=== PATIENT | male | born 1985 | race Caucasian/White ===

== ENCOUNTER 2016-05-09 11:18 | Inpatient (IN) ==
--- NOTE | 2016-05-09 12:31 | Emergency Department Note ---
Disposition Clinical Impression: Septic joint of right knee joint Qualifiers: Septic arthritis organism: due to unspecified organism Qualified Code(s): M00.9 - Pyogenic arthritis, unspecified Disposition: Admitted As Inpatient Referrals: NO,PCP [Non-Partnered Physician] - Forms: ED Satisfaction Letter Recheck wound or abnormal lab - General Chief Complaint: ED Recheck/Abnormal Lab/Rx Stated Complaint: septic joint Time Seen by Provider: 05/09/16 11:30 Source: patient, family Limitations: no limitations Nursing Notes Reviewed: Yes Vital Signs Reviewed: Yes - History of Present Illness HPI Narrative: Patient presents with complaint of right knee swelling. Patient has been ongoing for several months. Patient was seen here on the second after injuring his knee again. Patient state is instructed to follow-up with orthopedist and he states that when he followed up they drained his knee. Patient reveals that he received a card to call the hospital where he had the procedure done. Advised symptoms to report to [facility] or how state as they believe he had a septic joint. Patient states she has had some subjective fevers and chills denies nausea or vomiting. Patient states that after draining his knee became less swollen but he notes that his calf became more swollen. - Related Data Home Medications Medication Instructions Recorded Confirmed Alprazolam [Xanax 1 MG Tablet] 1 mg PO BID 02/07/16 02/08/16 Famotidine [Pepcid] 40 mg PO DAILY 02/07/16 02/08/16 Gabapentin [Neurontin] 800 mg PO TID 02/07/16 02/08/16 Ibuprofen [Motrin] 800 mg PO BID 02/07/16 02/08/16 Previous Rx's Medication Instructions Recorded Hydrocodone/Acetaminophen [[place] 1 tab PO Q6H PRN #20 tab 02/10/16 5-325 Tablet] Sulfamethoxazole/Trimeth DS 1 each PO BID 10 Days 02/10/16 [Bactrim DS] HYDROcodone/Acet 5/325 mg [[place] 1 tab PO Q6H PRN #8 tab 03/28/16 5-325 mg] Ibuprofen [Motrin] 600 mg PO Q6HR PRN #40 tab MDD 3200 03/28/16 HYDROcodone/Acet 5/325 mg [[place] 1 tab PO Q6H PRN #15 tab 05/02/16 5-325 mg] Naproxen [Naprosyn] 500 mg PO BID PRN #20 tablet 05/02/16 Allergies Allergy/AdvReac Type Severity Reaction Status Date / Time No Known Allergies Allergy Verified 05/09/16 11:25 All systems ED: reviewed and negative except as stated. Past Medical History - Past Medical History Source: patient Medical history: Reports: no medical history Psychiatric history: Reports: anxiety - Social History Smoking Status: Current every day smoker Smokeless Tobacco Status: Yes Alcohol use: Reports: none Drug use: Reports: none Physical Exam - General Limitations: no limitations General appearance: alert, in no apparent distress - Head Head exam: atraumatic, normocephalic, normal inspection - Eye Eye exam: Present: normal appearance, PERRL, EOMI - ENT ENT exam: normal exam, normal oropharynx, mucous membranes moist - Neck Neck exam: Present: normal inspection, full ROM, trachea midline - Chest Chest inspection: Present: normal inspection, symmetric chest wall rise - Respiratory Respiratory exam: Present: normal lung sounds bilaterally - Cardiovascular Cardiovascular exam: Present: regular rate, normal rhythm, normal heart sounds - Abdominal Exam Abdominal exam: Present: soft, Non-Tender. Absent: tenderness, distention, guarding, rebound, rigidity - Extremities Exam Extremities exam: Present: normal inspection, full ROM, tenderness (Right knee tenderness to palpation, decreased range of motion secondary to pain.), pedal edema - Back Exam Back exam: Present: normal inspection, full ROM. Absent: tenderness - Neurological Exam Neurological exam: Present: alert, oriented X3 - Psychiatric Psychiatric exam: Present: normal affect, normal mood - Skin Skin exam: Present: warm, dry, intact, normal color Course Vital Signs Temperature 97.5 F L 05/09/16 11:25 Pulse Rate 95 05/09/16 11:25 Respiratory Rate 16 05/09/16 11:25 Blood Pressure 139/79 05/09/16 11:25 O2 Sat by Pulse Oximetry 99 05/09/16 11:25 Temperature 97.5 F L 05/09/16 11:25 Pulse Rate 95 05/09/16 11:25 Respiratory Rate 16 05/09/16 11:25 Blood Pressure 139/79 05/09/16 11:25 O2 Sat by Pulse Oximetry 99 05/09/16 11:25 Oxygen Delivery Oxygen Delivery Room Air Recheck wound or abnormal lab - MDM Narrative Medical decision making narrative: Discussed this patient with Dr. Carter. Patient states this lasts food intake was last night. He does note prior to coming in today he had some chocolate milk which is at least 2 hours ago. - Lab Data Lab results reviewed: Yes I reviewed the patient's lab results. Lab results narrative: Labs are pending. Body fluid analysis performed on 05/04/2016 revealed a white cell count of 87,000 and red cell count of 100,000 in the synovial fluid of the right knee Critical Care Time Total Critical Care Time: 30 Attestation: Critical care performed: Time is exclusive of separately billable procedures. Time includes: direct patient care, patient reassessment, coordination of patient care, interpretation of data (laboratory data, radiology data, and respiratory data), review of patient's medical records, medical consultation and documentation of patient care. Procedures included in critical care time: Procedures excluded from critical care time:
[2016-05-09] MEDS ORDERED: Ondansetron 4 MG/2 ML VIAL IVP ONE (12:46)
[2016-05-09] MEDS ORDERED: *HR* Morphine 2 MG/ML SYRINGE IV ONE (12:46)
[2016-05-09] MEDS ORDERED: Vancomycin 1,750 MG in D5% in Water 500 ML IVPB ONE (13:09)
[2016-05-09 13:30] LABS: Basophils % 0.3 %; Eosinophils # 0.2 K/mcL (0.0-0.6); Eosinophils % 1.7 %; Hematocrit 37.4 % (37.5-50.1); Hemoglobin 12.6 g/dL (12.9-16.9); Immature Granulocytes % 0.7 % (0-4); Lymphocytes # 2.5 K/mcL (0.6-4.6); Lymphocytes % 21.9 %; Mean Corpuscular HGB Conc 33.7 g/dL (31.6-35.5); Mean Corpuscular Hemoglobin 29.2 pg (28.0-33.3); Mean Corpuscular Volume 86.8 fL (83.0-100.0); Mean Platelet Volume 8.8 fL (9.4-12.4); Monocytes # 0.5 K/mcL (0.0-1.3); Monocytes % 4.2 %; Neutrophils # 8.2 K/mcL (1.6-8.9); Platelet Count 399 K/mcL (140-400); Red Blood Count 4.31 M/mcL (4.19-5.50); Red Cell Distribution Width 12.1 % (11.5-14.5); Segmented Neutrophils % 71.2 %
[2016-05-09 13:43] LABS: Alanine Aminotransferase 64 Units/L (0-55); Albumin 3.1 g/dL (3.5-5.0); Albumin/Globulin Ratio 0.6 (1.1-2.2); Alkaline Phosphatase 97 Units/L (38-126); Aspartate Amino Transferase 35 Units/L (5-34); BUN/Creatinine Ratio 21 (6-26); Bilirubin,Total 0.3 mg/dL (0.2-1.2); Blood Urea Nitrogen 17 mg/dL (8-26); Calcium 10.2 mg/dL (8.6-10.8); Carbon Dioxide 24 mEq/L (19-29); Chloride 103 mEq/L (98-109); Globulin 5.4 g/dL (2.4-3.5); Glucose 89 mg/dL (70-99); Osmolality,Calculated 287 (280-300); Potassium 4.3 mEq/L (3.5-4.5); Sodium 138 mEq/L (136-145); Total Protein 8.5 g/dL (6.0-8.3); eGFR For African Americans > 60 (> 60); eGFR For Non-African Americans > 60 (> 60)
[2016-05-09] MEDS ORDERED: *HR* HYDROmorphone (PF) 1 MG/ML SYRINGE IVP ONE (14:06)
--- NOTE | 2016-05-09 15:46 | Orthopedic History & Physical ---
Date of Encounter: 05/09/16 Time of Encounter: 14:00 Assessment and Plan (1) Septic joint of right knee joint Current visit: Yes Status: Acute Medical records reviewed. Right Knee Aspiration performed under sterile conditions with 18g needle, 60cc Syringe through anterolateral approach. Approximately 20cc of turbid, yellow serusanginous fluid aspirated. No obvious purulence, but suspicious for infection. Fluid sent for STAT gram stain, cell count, and cultures prior to receiving antibiotics. Gram stain negative, elevated cell count Plan is for Right Knee Arthroscopic Washout today with . Consent was discussed and patient signed. Risks versus benefits reviewed. NPO. Non-ambulatory. Started IV Vancomycin. Qualifiers: Septic arthritis organism: due to unspecified organism Qualified Code(s): M00.9 - Pyogenic arthritis, unspecified History of Present Illness Chief complaint: Right Knee Pain x 2 months HPI: Mr. Cruz is a 30 year old male, presents to the ED for Right knee pain since March. He states he was at work, climbing a tree, and he slipped approximately 5-7 feet down the tree until his shoe cleats caught the tree. He was seen and evaluated in [facility] 03/28/16 for this, XRAY showed no evidence of fracture and he was discharged with instructions to follow up with Orthopedics. He did not do this. He has had Right knee pain ever since this incident with reported swelling, difficulty with ambulation and pain that radiates down into his lower leg. He has been to 2 different ERs over this 2 month course - Most recently he was seen at [facility] 05/02/16 and again diagnosed with Knee Sprain and discharged with instruction to f/up with Ortho. Then again, he was seen at [facility] 05/04/16. He has tried ICE, elevation, HEAT and rest. However, the pain has drastically increased x 1 week approximately. He is now unable to work secondary to pain. When he was seen at [facility] ED 05/04/15, a knee aspiration was performed. According to medical records, cultures revealed Staph Aureus from Right knee joint, elevated cell count with shift. At that time, MRI was ordered, but no antibiotics administered. Patient was called and informed of culture results today and he is now here. He has no prior history, or trauma to Right knee. He previously had an infection to his Right forearm that required 5-9 days of hospitalization for IV antibiotics in January to [facility] [facility]. This has since resolved without surgical intervention. He was discharged on PO BActrim. He has a history of anxiety, peptic ulcer disease, and neuropathy, and Suboxone use. He denies illicit drug use, alcohol use. He admits to 1PPD smoker. He denies CP, admits to intermittent chills and fever at home. Past Med Surg Social Fam HX - Past Medical History Medical history: no medical history Psychiatric history: anxiety - Social History Smoking Status: Current every day smoker Smokeless Tobacco Status: Yes Alcohol use: none Drug use: none - Family History Grandmother Age at : 69 Cause of : Lung Cancer Hx Family Cardiac Disorders: Yes Hx Family Respiratory Disorders: No (COPD) Hx Family Cancer: Yes (LUng and Breast Cancer) Hx Family GI Disorders: Yes (GERD) Hx Family Genitourinary Disorders: No Hx Family Endocrine Disorder: Yes (Diabetes) Hx Family Musculoskeletal Disorders: No Hx Family Neuromuscular Disorders: No Hx Family Neurologic Disorders: No Hx Family HEENT Disorders: No Hx Family Autoimmune Disorders: No Hx Family Reproductive Disorders: No Hx Family Psychosocial Disorders: No Hx Family Medical Disorders: No Medications and Allergies Gabapentin [Neurontin] 800 mg PO TID 02/07/16 [History] Ibuprofen [Motrin] 800 mg PO BID 02/07/16 [History] OxyCODONE/APAP 5/325 [Percocet 5/325 MG] 1 tab PO Q6H PRN 05/09/16 [History] Oxycodone HCl/Acetaminophen [Percocet 5-325 mg Tablet] 1 each PO Q4-6H PRN #40 tablet 05/10/16 [Rx] Sulfamethoxazole/Trimeth DS [Bactrim DS] 2 each PO BID #60 tablet 05/10/16 [Rx] Allergies No Known Allergies Allergy (Verified 05/09/16 13:25) All Systems Reviewed: A 10-system review of systems was performed and is negative for pertinent findings except as documented above in the HPI. - Constitutional Constitutional: as per HPI, fever(s), frequent falls - Cardiovascular Cardiovascular: as per HPI, no chest pain, no claudication, no edema, no syncope - Respiratory Respiratory: as per HPI, no cough, no dyspnea - Musculoskeletal Musculoskeletal: as per HPI, abnormal gait, joint swelling, limited range of motion, radiating pain into limb, no numbness, no tingling Physical Exam - Constitutional Vitals: Temp Pulse Resp BP Pulse Ox 97.5 F L 95 18 131/72 99 05/09/16 11:25 05/09/16 11:25 05/09/16 14:31 05/09/16 14:31 05/09/16 11:25 General appearance IM: A&O X 3, no acute distress - Knee right Appearance: effusion Effusion grade: grade 1 Varus alignment in stance: No Valgus alignment in stance: No Tenderness with palpation knee: anterior, posterior, medial, lateral Pain: with flexion, with extension, throughout ROM Gait: limping ROM: extension knee: Full ROM: flexion knee: Limited Crepitus with motion: No Results - Labs Result Diagrams: 05/10/16 13:41 05/10/16 13:41 Labs: Abnormal lab results WBC 11.5 K/mcL (4.3-11.1) H 05/09/16 13:25 Hgb 12.6 g/dL (12.9-16.9) L 05/09/16 13:25 Hct 37.4 % (37.5-50.1) L 05/09/16 13:25 MPV 8.8 fL (9.4-12.4) L 05/09/16 13:25 AST 35 Units/L (5-34) H 05/09/16 13:25 ALT 64 Units/L (0-55) H 05/09/16 13:25 Serum Total Protein 8.5 g/dL (6.0-8.3) H 05/09/16 13:25 Albumin 3.1 g/dL (3.5-5.0) L 05/09/16 13:25 Globulin 5.4 g/dL (2.4-3.5) H 05/09/16 13:25 Albumin/Globulin Ratio 0.6 (1.1-2.2) L 05/09/16 13:25 All other labs normal.
[2016-05-09] MEDS ORDERED: *HR* Morphine 2 MG/ML SYRINGE IVP PRN (16:18)
[2016-05-09 16:27] LABS: Source,Synovial Fluid RIGHT KNEE
[2016-05-09] MEDS ORDERED: D5% in 0.45% NACL 1,000 ML IVC SCH (16:30)
--- NOTE | 2016-05-09 17:12 | Anesthesia Evaluation PreOp ---
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: Other (chronic right hip pain) Other Medical History: GERD Anesthesia History: No Prior Anesthetic Complications, Past Anesthesia Alcohol Use: none Drug use: none Medications and Allergies Gabapentin [Neurontin] 800 mg PO TID 02/07/16 [History] Ibuprofen [Motrin] 800 mg PO BID 02/07/16 [History] OxyCODONE/APAP 5/325 [Percocet 5/325 MG] 1 tab PO Q6H PRN 05/09/16 [History] Allergies No Known Allergies Allergy (Verified 05/09/16 13:25) - Meds/Allergy Pre-op Review Medications Reviewed: Yes Allergies Reviewed: Yes Beta Blockers on Current Med List: No Anesthesia Results - Labs 05/09/16 13:25 05/09/16 13:25 Anesthesia Exam Vital Signs/O2 Sat, Most Current Temp Pulse Resp BP Pulse Ox 98.6 F 81 16 114/64 100 05/09/16 15:46 05/09/16 15:46 05/09/16 15:46 05/09/16 15:46 05/09/16 15:46 Height: 6'/1.83 m Weight: 270 lbs/122.47 kg NPO (# of Hours): 8 Pain Scale: 0 Pain Scale Used: Numeric (1 - 10) - HEENT Pupil (Motor): EOMI Mallampati: III Teeth: Normal (broken right upper tooth) Oral Opening: Greater than 3 - MANAGER [employer] LOC: Oriented MANAGER [employer] Motor: Normal RUE, Normal LUE, Normal RLE, Normal LLE, Normal Face [employer]NAGER [employer] Sensory: Normal: RUE, LUE, RLE, LLE, Face - Cardiac Rhythm: Regular Murmur: None - Pulmonary Breath Sounds: bilateral Clear Respiratory Effort: Symmetrical Anesthesia Assess/Plan ASA Score: 2 Modified [place] Scale for Level of Consciousness: Cooperative, oriented, and tranquil Anesthetic Plan: General Monitoring Plan: Standard Monitors Recovery Plan: PACU
[2016-05-09] MEDS ORDERED: Dexamethasone 4 MG/ML VIAL ONE (17:31)
[2016-05-09] MEDS ORDERED: *HR* FentaNYL (PF) 100 MCG/2 ML VIAL ONE ×2 (17:31→18:19)
[2016-05-09] MEDS ORDERED: Ondansetron 4 MG/2 ML VIAL ONE (17:31)
[2016-05-09] MEDS ORDERED: Lidocaine -MPF 2% 2 ML VIAL ONE (17:32)
[2016-05-09] MEDS ORDERED: *HR* Midazolam HCl 2 MG/2 ML VIAL ONE (17:32)
[2016-05-09] MEDS ORDERED: *HR* Propofol 200 MG/20 ML VIAL IVP ONE ×2 (17:32→18:03)
[2016-05-09] MEDS ORDERED: Lidocaine -MPF 4% 5 ML AMPUL ONE (17:36)
[2016-05-09] MEDS ORDERED: *HR* Succinylcholine 200 MG/10 ML VIAL IVP ONE (17:36)
[2016-05-09] MEDS ORDERED: *HR* HYDROmorphone 2 MG/ML SYRINGE ONE (18:09)
[2016-05-09] MEDS ORDERED: *HR* Promethazine 25 MG/ML VIAL IVP PRN (18:20)
[2016-05-09 18:40] LABS: Appearance,Synovial Fluid Cloudy (Clear-Hazy); Color,Synovial Fluid Straw (Straw)
--- NOTE | 2016-05-09 18:48 | Operative Note ---
Date of procedure: 05/09/16 Pre-op diagnosis: Right septic knee joint Post-op diagnosis: same Procedure: Right knee arthroscopic lavage and synovectomy Anesthesia: ZAYRA Surgeon: Delfino Carter Digester: Vinicius Lindsay Estimated blood loss (cc): 2 Specimen: cultures Condition: stable Disposition: PACU Procedure in Detail: The patient was brought in the OR and positioned on the OR table in supine position. A sign in was performed. The patient underwent general anesthesia. A tourniquet was placed on the right thigh proximally, which was positioned in the Mauri legholder. The right lower extremity was then prepped and draped in usual sterile fashion. A timeout was performed. A 5 mm stab incision was made with an 11 blade, and the superior anterior drill portal. A drainage trocar was established. A few cc of blood-tinged.turbid fluid gushed out. This fluid was cultured for aerobic and anaerobic. The direct anterior lateral portal was made at the lateral aspect of the patella tendon at the joint line level, the trocar was established followed by the scope. Normal saline was run through the joint, along outflow through the superior lateral portal. The patient had significant degenerative changes, mainly in the medial compartment with partial detachment of a meniscus. The ACL appeared torn. The lateral compartment was in better condition. A spinal needle was used to establish the medial portal, a 3.8 mm shaver was introduced. This used to help debulk a synovitis and was removed from onto very crystalline deposits. We allowed 6 L of normal saline to run through the knee. The 2 inferior portals were closed with a 2-0 nylon suture. The other superior portal was left partially open to drain. The patient was injected with 15 mL of 0.5 Marcaine into the knee for postoperative pain control. Sterile dressings applied. The patient was extubated taken to recovery room in stable condition.
[2016-05-09] MEDS: *HR* HYDROmorphone (PF) 1 MG/ML SYRINGE IVP PRN ×8 (19:04→19:50)
--- NOTE | 2016-05-09 19:58 | Anesthesia Evaluation Post Op ---
Date of Encounter: 05/09/16 Time of Encounter: 19:58 - Vital Signs Vital Signs: Vital Signs/O2 Sat, Most Current Temp Pulse Resp BP Pulse Ox 98.1 F 91 18 140/93 96 05/09/16 19:47 05/09/16 19:47 05/09/16 19:47 05/09/16 19:47 05/09/16 19:47 - Lungs Lungs: Clear Ascult./Percussion - Airway Airway: Non-obstructed - Cardiovascular Regular Rate - Mental Status Mental Status: Alert & Oriented, Answers Appropriately - Pain Pain Scale: 5 Pain Scale used: Numeric (1 - 10) - Nausea Vomiting Nausea Vomiting: Not Present - Hydration Hydration: Ice chips, Has not voided - Discharge PostOp Status: Transfer Patient to floor
[2016-05-09] MEDS ORDERED: Acetaminophen 325 MG TABLET PO PRN (20:13)
[2016-05-09] MEDS: *HR* OxyCODONE/APAP 5/325 TABLET PO PRN (21:23)
[2016-05-10] MEDS: Vancomycin 1,750 MG in D5% in Water 500 ML IVPB SCH ×2 (00:16→08:38)
[2016-05-10] MEDS: *HR* Morphine 2 MG/ML SYRINGE IVP PRN ×5 (00:16→22:55)
[2016-05-10] MEDS: *HR* OxyCODONE/APAP 5/325 TABLET PO PRN ×4 (03:59→21:23)
[2016-05-10] MEDS: *HR* Enoxaparin 40 MG/0.4 ML SYRINGE SQ SCH (06:18)
--- NOTE | 2016-05-10 08:35 | Discharge Summary ---
Date of Encounter: 05/11/16 Time of Encounter: 08:33 - Discharge Diagnosis (1) Septic joint of right knee joint Priority: Primary Status: Acute Qualifiers: Septic arthritis organism: due to unspecified organism Qualified Code(s): M00.9 - Pyogenic arthritis, unspecified - Discharge Medications Home Medications: Gabapentin [Neurontin] 800 mg PO TID 02/07/16 [History] Ibuprofen [Motrin] 800 mg PO BID 02/07/16 [History] OxyCODONE/APAP 5/325 [Percocet 5/325 MG] 1 tab PO Q6H PRN 05/09/16 [History] Oxycodone HCl/Acetaminophen [Percocet 5-325 mg Tablet] 1 each PO Q4-6H PRN #40 tablet 05/10/16 [Rx] Sulfamethoxazole/Trimeth DS [Bactrim DS] 2 each PO BID #60 tablet 05/10/16 [Rx] Allergies/Adverse Reactions: Allergies No Known Allergies Allergy (Verified 05/09/16 13:25) Labs on day of discharge: Labs from last 24 hours 05/09/16 14:55 Synovial Source RIGHT KNEE Synovial Color Straw Synovial Appearance Cloudy Synovial Volume Test Not Performed Synovial RBC < 0.002 Synovial Tot Nuc Cell 12818 H Synovial Band Neuts Test Not Performed Synovial Basophils Test Not Performed Synovial Eosinophils Test Not Performed Synovial Seg Neuts % 96.0 Synovial Lymphocytes % 4.0 Synovial Monocytes % Test Not Performed Synovial Other Cells % Test Not Performed Preliminary micro results at discharge 05/09/16 18:15 Wound Culture - Preliminary Right Knee No growth. 05/09/16 14:45 Body Fluid Culture - Preliminary Other-Specify in Comments Date of admission: 05/09/16 13:43 Primary care physician: Heather Sheriff BARRATTE OPERATOR Discharging clinician: Delfino Carter Anticipated date of discharge: 05/10/16 - Patient Status Disposition: Home, Self-Care Condition: Good Functional capacity at discharge: independent ambulation Overall status at discharge: patient is progressing back to baseline - Discharge Instructions Follow Up With: Jia Romero PAC [Physician Digital Experience Manager] - 05/19/16 3:00 pm Forms: Inpatient Work/School Release - Diet and Activity Diet: regular diet - Hospital Course Hospital course: Mr. Cruz is a 30 year old male Who underwent arthroscopic lavage of right knee last night - Time Spent with Patient Total time spent providing and/or coordinating discharge services:
--- NOTE | 2016-05-10 12:26 | Orthopedics Progress Note ---
Date of Encounter: 05/10/16 Time of Encounter: 11:45 - Assessment and Plan (1) Septic joint of right knee joint Current Visit: Yes Status: Acute May change dressings tomorrow and apply dry gauze to incisions and continue to use ZO wrap for swelling and stability. Finish dose of IV abx. Will go home with PO abx rx. Will have pain med script upon discharge. Preliminary cx results show no growth. Pending new labs for today. Will DC today if WBC trending down. continue HEP reviewed with patient by therapy. WBAT. Will f/up in [facility] office in 1 week. Qualifiers: Septic arthritis organism: due to unspecified organism Qualified Code(s): M00.9 - Pyogenic arthritis, unspecified Subjective Principal diagnosis: POD#1 S/P - Interval history: Patient doing well this morning but still having moderate pain in the knee. No events overnight. Denies numbness or tingling in leg. States therapy has been in to work with him today and gave him exercises to do at home. Objective Vital signs: Vital Signs Temp Pulse Resp BP Pulse Ox 05/10/16 11:00 97.9 F 84 16 129/79 97 05/10/16 07:00 98.2 F 85 16 122/68 99 05/10/16 04:21 98.4 F 87 16 109/70 99 05/09/16 23:15 98.6 F 86 16 129/78 97 05/09/16 22:15 97.8 F 85 16 133/80 96 05/09/16 21:14 97.7 F 90 16 135/81 96 05/09/16 20:45 98.6 F 90 16 130/82 96 05/09/16 20:15 98.5 F 96 16 137/86 95 05/09/16 20:05 98.0 F 74 18 145/90 96 05/09/16 19:57 69 16 147/92 93 L 05/09/16 19:47 98.1 F 91 18 140/93 96 05/09/16 19:37 96 16 155/91 95 05/09/16 19:27 98 18 155/102 94 L 05/09/16 19:17 98.3 F 920 18 152/90 93 L 05/09/16 19:07 111 20 165/112 96 05/09/16 18:57 94 20 155/106 100 01/09/17 18:47 98.4 F 105 16 163/84 99 05/09/16 15:46 98.6 F 81 16 114/64 100 05/09/16 14:31 18 131/72 Intake and Output 05/09/16 05/10/16 05/10/16 23:59 07:59 15:59 Intake Total 500 / 500 500 / 500 480 / 480 Output Total 176 / 176 1850 / 1850 0 / 0 Balance 324 / 324 -1350 / -1350 480 / 480 Intake: IV Fluids 500 / 500 500 / 500 Vancocin 1,750 MG In 500 / 500 500 / 500 Dextrose 5% 500 ML @ 334. 014 mls/hr IVPB Q8H [facility] Rx#:[id number] Oral 0 / 0 480 / 480 Output: Urine 175 / 175 1850 / 1850 0 / 0 Estimated Blood Loss Other: Meal Dinner Breakfast Percent of Meal Consumed 100% Incision: clean and dry (dressings c/d/i not removed for exam. limited ROM of knee due to ZO wrap. good dorsiflexion of foot. RLE NV intact.) - Labs CBC & BMP: 05/09/16 13:25 05/09/16 13:25 Labs: Abnormal lab results WBC 11.5 K/mcL (4.3-11.1) H 05/09/16 13:25 Hgb 12.6 g/dL (12.9-16.9) L 05/09/16 13:25 Hct 37.4 % (37.5-50.1) L 05/09/16 13:25 MPV 8.8 fL (9.4-12.4) L 05/09/16 13:25 AST 35 Units/L (5-34) H 05/09/16 13:25 ALT 64 Units/L (0-55) H 05/09/16 13:25 Serum Total Protein 8.5 g/dL (6.0-8.3) H 05/09/16 13:25 Albumin 3.1 g/dL (3.5-5.0) L 05/09/16 13:25 Globulin 5.4 g/dL (2.4-3.5) H 05/09/16 13:25 Albumin/Globulin Ratio 0.6 (1.1-2.2) L 05/09/16 13:25 Synovial Tot Nuc Cell 64994 TNC/mcL (0-200) H 05/09/16 14:55 Consult Discharge Plan - Plan Referrals: Heather Sheriff CNP [Primary Care Provider] - Prescriptions: Oxycodone HCl/Acetaminophen [Percocet 5-325 mg Tablet] 1 each PO Q4-6H PRN #40 tablet PRN Reason: Pain Sulfamethoxazole/Trimeth DS [Bactrim DS] 2 each PO BID #60 tablet
[2016-05-10 13:45] LABS: Basophils % 0.2 %; Eosinophils # 0.1 K/mcL (0.0-0.6); Eosinophils % 0.9 %; Hematocrit 36.3 % (37.5-50.1); Hemoglobin 12.7 g/dL (12.9-16.9); Immature Granulocytes % 0.7 % (0-4); Lymphocytes # 3.6 K/mcL (0.6-4.6); Lymphocytes % 29.5 %; Mean Corpuscular Hemoglobin 29.3 pg (28.0-33.3); Mean Corpuscular Volume 83.6 fL (83.0-100.0); Mean Platelet Volume 8.9 fL (9.4-12.4); Monocytes # 0.8 K/mcL (0.0-1.3); Monocytes % 6.3 %; Neutrophils # 7.7 K/mcL (1.6-8.9); Platelet Count 401 K/mcL (140-400); Red Blood Count 4.34 M/mcL (4.19-5.50); Red Cell Distribution Width 12.2 % (11.5-14.5); Segmented Neutrophils % 62.4 %
[2016-05-10 13:57] LABS: BUN/Creatinine Ratio 21 (6-26); Blood Urea Nitrogen 16 mg/dL (8-26); C-Reactive Protein 54 mg/L (Less than 5); Calcium 9.3 mg/dL (8.6-10.8); Carbon Dioxide 22 mEq/L (19-29); Chloride 103 mEq/L (98-109); Glucose 109 mg/dL (70-99); Osmolality,Calculated 284 (280-300); Potassium 3.8 mEq/L (3.5-4.5); Sodium 136 mEq/L (136-145); eGFR For African Americans > 60 (> 60); eGFR For Non-African Americans > 60 (> 60)
[2016-05-10] MEDS ORDERED: Naloxone 0.4 MG/ML INJ IVP PRN (16:02)
[2016-05-11] MEDS ORDERED: Vancomycin 1,750 MG in D5% in Water 500 ML IVPB SCH (01:00)
[2016-05-11] MEDS: *HR* OxyCODONE/APAP 5/325 TABLET PO PRN ×2 (01:28→05:28)
[2016-05-11] MEDS: *HR* Enoxaparin 40 MG/0.4 ML SYRINGE SQ SCH (05:28)
[2016-05-11 05:41] LABS: Basophils % 0.2 %; Eosinophils # 0.2 K/mcL (0.0-0.6); Hematocrit 35.6 % (37.5-50.1); Immature Granulocytes % 1.1 % (0-4); Lymphocytes # 2.8 K/mcL (0.6-4.6); Lymphocytes % 32.8 %; Mean Corpuscular HGB Conc 33.7 g/dL (31.6-35.5); Mean Corpuscular Hemoglobin 29.1 pg (28.0-33.3); Mean Corpuscular Volume 86.4 fL (83.0-100.0); Monocytes # 0.5 K/mcL (0.0-1.3); Monocytes % 5.9 %; Neutrophils # 4.9 K/mcL (1.6-8.9); Platelet Count 362 K/mcL (140-400); Red Blood Count 4.12 M/mcL (4.19-5.50); Red Cell Distribution Width 12.4 % (11.5-14.5)
[2016-05-11 06:34] VITALS: BP 125/85
[2016-05-11] MEDS ORDERED: Aminoglycoside Consult 1 EACH MC ONE (08:41)
== END 2016-05-11 08:42 | disposition home or self-care (01) | DRG 313 ==
LOC: EMEROO 11:18 → 3ANU 11:18
PROVIDERS: ADMIT Orthopaedic Surgery Hand Surgery; ATTEND Orthopaedic Surgery Hand Surgery